=== PATIENT | female | born 1990 | race Caucasian/White ===

== ENCOUNTER 2018-07-28 17:48 | Emergency (ER) | payer OTHER ==
--- NOTE | 2018-07-28 19:14 | EDM.PDOC ---
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 Patient was evaluated this past weekend at the [facility] with concerns of being . Patient took a test at home which came back positive. She was seen in the [facility] later that day with confirmation. She was scheduled to see DENTAL ASSISTING INSTRUCTOR specialist on . She states during the procedure the DENTAL ASSISTING INSTRUCTOR specialist was unable to locate the IUD string. OB ultrasound was obtained indicating patient was 10 weeks . Patient was advised that there was 2 options. The first is leaving the IUD in place and risk the patient having a spontaneous or attempting to retrieve the IUD and causing a miscarriage. Patient was unhappy of her care thus came to the ED today for further evaluation and determine other options. Patient has had some slight abdominal cramping with dysuria at times. She denies any abnormal vaginal discharge and/or any vaginal bleeding. She denies any fever, nausea vomiting, diarrhea, constipation, recent sick exposure, or any additional complaints. She denies any concerns for STD. history includes 2 para 1. Abdomen Pain Score (Numeric/FACES): 4 - Related Data Allergies Allergy/AdvReac Type Severity Reaction Status Date / Time amoxicillin [From Augmentin] Allergy Nausea and Verified 07/28/18 18:06 Vomiting clavulanic acid Allergy Nausea and Verified 07/28/18 18:06 [From Augmentin] Vomiting Home Meds: Home Meds . 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 ED EXAM - Physical Exam Exam: See Below Exam Limited By: No Limitations General Appearance: Alert, WD/WN, No Apparent Distress Ears: Hearing Grossly Normal Nose: Normal Inspection Throat/Mouth: Normal Voice, No Airway Compromise Head: Atraumatic, Normocephalic Neck: Normal Inspection, Supple Respiratory/Chest: No Respiratory Distress, No Accessory Muscle Use Cardiovascular: Normal Peripheral Pulses, Regular Rate, Rhythm GI/Abdominal Exam: Normal Bowel Sounds, Soft, Non-Tender, No Organomegaly, No Distention Back Exam: Normal Inspection. No: CVA Tenderness (L), CVA Tenderness (R) Extremities: Normal Inspection Neurological: Alert, Oriented, CN II-XII Intact, Normal Cognition, Normal Gait, No Motor/Sensory Deficits Psychiatric: Normal Affect, Normal Mood Skin Exam: Warm, Dry, Intact, Normal Color Course - Vital Signs Last Recorded V/S: Last Vital Signs Temp 97.5 F 07/28/18 18:09 Pulse 102 H 07/28/18 18:09 Resp 20 07/28/18 18:09 BP 132/71 07/28/18 18:09 Pulse Ox 99 07/28/18 18:09 - Orders/Labs/Meds Labs: Laboratory Tests 07/28/18 Range/Units 19:04 Urine Color Yellow (Yellow) Urine Appearance Clear (Clear) Urine pH 6.0 (5.0-8.0) Ur Specific [place] > or = 1.030 (1.005-1.030) Urine Protein Negative (Negative) Urine Glucose (UA) Negative (Negative) Urine Ketones Negative (Negative) Urine Occult Blood Trace-lysed H (Negative) Urine Nitrite Negative (Negative) Urine Bilirubin Negative (Negative) Urine Urobilinogen 0.2 (0.2-1.0) Ur Leukocyte Esterase Negative (Negative) Urine RBC 10-20 H (0-5) /hpf Urine WBC 0-5 (0-5) /hpf Ur Epithelial Cells 0-5 (0-5) /hpf Amorphous Sediment Few H (NOT SEEN) /hpf Urine Bacteria Few (FEW) /hpf Urine Mucus Moderate H (FEW) /hpf - Re-Assessments/Exams Free Text/Narrative Re-Assessment/Exam: 07/28/18 43[address] I did speak with Dr. Allen production checker DENTAL ASSISTING INSTRUCTOR specialist and he did not recommend anything performed here. If patient wishes to be evaluated by a OB /JUNIOR ART DIRECTOR specialist here she is welcome to call their clinic for further evaluation this coming week. Medical records from [facility] emergency room department were obtained from recent evaluation that took place on 07/21/2018. HCG quantitative was 77,252.1. Transvaginal OB ultrasound indicates single viable intrauterine with a IUD anterior to the . Consistent with 10 weeks and 5 days. heart rate of 152. Dr. Pillai DENTAL ASSISTING INSTRUCTOR was unsuccessful with removal of IUD. Patient was instructed to start vitamins.She was discharged home with recommendation to follow-up with OB provider of choice. With review of Dr. Pillai note 07/21/2018 it appeared the IUD was adjacent to the gestational sac but not embedded in the Endo/myometrium. Visualization of the cervix with speculum, IUD string were not visible. Endocervical brush was not available so cotton swab was used to try and pulse string down. I was unable to retrieve the strings. Advised patient there is a risk of spontaneous of IUD is left in place and that there is a risk if IUD is pulled. Patient stated that she did not want to do anything to cause a miscarriage, but that she got the IUD so she could not get . She isn't sure how her boyfriend would feel about , but is aware that she can return to ED if she feels unsafe. Patient offered appointment in OB clinic if she plans to continue . Also suggested that she return to [facility], were [facility], to be fully counseled on options available. Reviewed clinic visit with Dr. Pillai 07/26/2018. Patient stated she had some spotting this week and passed tissue. Discussed with boyfriend who also desires termination. Again they attempted to remove the IUD with no success. Patient was advised twice a day was not able to be removed and there is still a risk of spontaneous . Patient stated that she does not want to . Discussed options of keeping, termination, or nausea. Patient states that if she carries a that she will likely end up keeping despite the fact that she and her boyfriend unable to maintain another child. She declined information regarding adoption. She states that she called [facility] and was told that without insurance she would need $1300 hrs. for procedure. Patient states that she will look into providers, possibly in [place]. 1927 I did speak with the patient. Patient does not want to keep this baby. She is looking to have a . Patient will seek other means for aborting the child. Once UA has resulted we will determine treatment course and discharge. A indicated trace lysed blood, urine rbc's 10-20, amorphous sediment few, mucous moderate. Again patient denies any vaginal bleeding. Patient's ABO/Rh type is O+. Return precautions were discussed with the patient. Patient had no further questions or concerns. Discharge instructions as documented. Departure - Departure Time of Disposition: 19:31 Disposition: Home, Self-Care 01 Condition: Good Clinical Impression: IUD failure, Hematuria Qualifiers: Hematuria type: unspecified type Qualified Code(s): R31.9 - Hematuria, unspecified - Discharge Information Instructions: Hematuria, Adult Referrals: PCP,None [Primary Care Provider] - Forms: ED Department Discharge Additional Instructions: UA did indicate some blood within her urine. No additional testing is warranted at this time since she do not have any vaginal bleeding. Please see PCP in the next 1-2 weeks to assure resolution. Please refer to [facility] to discuss options for . If at any time you experience any new or worsening symptoms please return back to the ED.
== END 2018-07-28 20:00 | disposition home or self-care (01) ==
LOC: JD.ED 17:48
DX: T83.32XA Displacement of intrauterine contraceptive device, initial encounter (principal); R31.9 Hematuria, unspecified; Z3A.10 10 weeks gestation of pregnancy
CPT/HCPCS: 81001; 99282; 99284